=== PATIENT | female | born 1945 | race Hispanic/Latino ===

== ENCOUNTER → 2023-07-31 | Outpatient (CLI) | payer OTHER ==
[~2023-07-31] MED LIST: APIX5TAB PO; ASPI-1197 PO; DILT180C77 PO; GABA-529 PO; GLIP5TAB15 PO; LISI2.5T13 PO; METF-444 PO; METO100T14 PO; MIDO5TAB4 PO; OMEP40CA21 PO; POTA99TA17 PO; SIMV-46 PO
[2023-07-31 16:33] LABS: CREATININE 0.8 mg/dL (0.5-1.5); POTASSIUM 3.7 mmol/L (3.5-5.1)
== END | disposition home or self-care (01) ==
LOC: LAB 14:07
PROVIDERS: ATTEND Internal Medicine Cardiovascular Disease
DX: I48.0 Paroxysmal atrial fibrillation (principal)
CPT/HCPCS: 36415; 80048; 83880

== ENCOUNTER 2024-04-09 05:46 | Observation (INO) | payer OTHER ==
[2024-04-07 11:15] VITALS: BP 151/77; PULSE 53; RESP 18; TEMP 98.1
[2024-04-07 11:15] LABS: CREATININE 0.9 mg/dL (0.5-1.0); POTASSIUM 4.2 mmol/L (3.5-5.1)
[2024-04-07 11:18] LABS: BASOPHILS # (AUTO) 0.05 K/uL (0.00-0.20); BASOPHILS % (AUTO) 0.5 % (0.0-5.0); EOSINOPHILS # (AUTO) 0.24 K/uL (0.00-0.70); EOSINOPHILS % (AUTO) 2.5 % (0.0-8.0); IMMATURE GRANULOCYTE ABSOLUTE 0.03 K/uL (0-1); LYMPHOCYTES # (AUTO) 2.4 K/uL (1.0-4.8); LYMPHOCYTES % (AUTO) 25.4 % (21.0-51.0); MEAN CORPUSCULAR HEMOGLOBIN 29.4 pg (27.0-33.0); MEAN CORPUSCULAR HGB CONC 31.2 g/dL (32.0-36.0); MEAN CORPUSCULAR VOLUME 94.3 fL (79-99); MONOCYTES # (AUTO) 0.5 K/uL (0.1-1.0); MONOCYTES % (AUTO) 5.7 % (3.0-13.0); NEUTROPHILS # (AUTO) 6.2 K/uL (1.8-7.7); NEUTROPHILS % (AUTO) 65.6 % (40.0-77.0); PLATELET COUNT (AUTO) 223 K/uL (130-400); RED BLOOD CELL COUNT(AUTO) 4.35 MIL/uL (4.00-5.50); RED CELL DISTRIBUTION WIDTH 13.2 % (11.0-15.5); WHITE BLOOD COUNT (AUTO) 9.5 K/uL (4.8-10.8)
[2024-04-07 11:23] LABS: INR 1.01 (0.85-1.15); PROTHROMBIN TIME 10.9 SEC (9.6-11.6)
[2024-04-07 11:24] LABS: PARTIAL THROMBOPLASTIN TIME 27.5 SEC (26.3-35.5)
[2024-04-09] VITALS (17 sets, daily range): BP systolic 103–134; BP diastolic 53–69; PULSE 57–74; RESP 13–20; TEMP 97.4–98.6; O2SAT 97–98
[~2024-04-09] VITALS: Ht 170.2 cm; Wt 89.3 kg
[~2024-04-09 05:46] MED LIST changes: -ASPI-1197 PO; +DAPA5TAB PO; -GLIP5TAB15 PO; +MAGN400C PO; -MIDO5TAB4 PO; +MULT-1193 PO
[2024-04-09] MEDS ORDERED: AMIO200T68 PO (06:40)
[2024-04-09] MEDS ORDERED: SUCCINYLCHOLINE CHLORIDE 20 MG/ML 10 ML VIAL ONE (07:06)
[2024-04-09] MEDS ORDERED: rocuRONium bROMide 10MG/1ML 5ML VL ONE (07:06)
[2024-04-09] MEDS ORDERED: HEParin-NS 1,000 UNIT/500 ML 1,000 ML IV ONE (07:15)
[2024-04-09] MEDS ORDERED: LIDOCAINE HCL 400MG/20ML VIAL ONE (07:15)
[2024-04-09] MEDS ORDERED: HEParin 10,000 UNIT/10ML (1,000 UNIT/ML) VIAL ONE ×3 (07:15→11:33)
[2024-04-09] MEDS ORDERED: HEParin-NS 1,000 UNIT/500 ML 500 ML IV ONE (07:50)
[2024-04-09] MEDS ORDERED: PROTAMINE SULFATE 10 MG/ML 5 ML VIAL ONE (13:52)
[2024-04-09] MEDS ORDERED: acetaMINOPHEN WITH coDEINE 1 TAB TAB PO PRN (17:00)
[2024-04-09] MEDS: SUCRALFATE 1 GM/10 ML PO SCH (18:46)
[2024-04-09] MEDS: metFORmin HCL 500 MG TABLET PO SCH (21:00)
[2024-04-09] MEDS: GABApentin 100 MG CAPSULE PO SCH (21:05)
[2024-04-09] MEDS: metoPROLOL tartRATE 50 MG TAB PO SCH (21:05)
[2024-04-09] MEDS: APIXaban 5 MG TABLET PO SCH (21:05)
[2024-04-10 03:21] VITALS: BP 107/56; PULSE 60; RESP 16; TEMP 98.9
[2024-04-10] MEDS: proPOFol 10 MG/ML 20ML VIAL IV ONE (06:59)
[2024-04-10] MEDS: PHENYLEPHRINE HCL 10 MG/ML 1ML VIAL IV ONE (06:59)
[2024-04-10] MEDS: FENTanyl CITRate PF 50 MCG/1 ML 2ML VIAL ONE (06:59)
[2024-04-10] MEDS: ONDANSETRON 4MG INJ ONE (06:59)
[2024-04-10] MEDS: 0.9%NACL 1000ML 1,000 ML IV ONE (07:00)
[2024-04-10] MEDS: LIDOCAINE PF 100MG/5ML (2%) SYRINGE 5ML ONE (07:00)
[2024-04-10] MEDS: ePHEDrine SULFate 50 MG/ML AMPULE ONE (07:00)
[2024-04-10] MEDS: dexaMETHasone SOD PHOSPHATE 4 MG/ML 1ML VIAL ONE (07:00)
[2024-04-10 07:34] VITALS: BP 119/50; PULSE 61; RESP 18; TEMP 98.5
[2024-04-10 08:00] VITALS: O2SAT 97
[2024-04-10] MEDS ORDERED: Dapagliflozin Propanediol (Farxiga) 5 MG PO SCH (09:00)
[2024-04-10] MEDS ORDERED: Potassium Gluconate 99 MG PO SCH (09:00)
[2024-04-10] MEDS: AMIOdarone 200 MG TABLET PO SCH (09:45)
[2024-04-10] MEDS: LISINOPRIL 2.5 MG TABLET PO SCH (09:46)
[2024-04-10] MEDS: MAGNESIUM OXIDE 400 MG TABLET PO SCH (09:46)
[2024-04-10] MEDS: dilTIAZem 180MG SR CAP PO SCH (09:47)
[2024-04-10] MEDS: PANTOPRAZOLE 40 MG TAB DR PO SCH (09:47)
[2024-04-10] MEDS: simVASTatin 20 MG TABLET PO SCH (09:48)
[2024-04-10] MEDS: acetaMINOPHEN WITH coDEINE 1 TAB TAB PO PRN (09:54)
[2024-04-10] MEDS ORDERED: SUCR1TAB2 PO (09:59)
== END 2024-04-10 11:50 | disposition home or self-care (01) ==
LOC: DAH 05:46 → DAHIP 05:47 → DAH 05:47 → 2AH 15:50
PROVIDERS: ADMIT Internal Medicine Cardiovascular Disease; ATTEND Internal Medicine Cardiovascular Disease
DX: I48.0 Paroxysmal atrial fibrillation (principal); I49.3 Ventricular premature depolarization; I47.29 Other ventricular tachycardia; E11.9 Type 2 diabetes mellitus without complications; I10 Essential (primary) hypertension; E78.5 Hyperlipidemia, unspecified; Z79.84 Long term (current) use of oral hypoglycemic drugs; Z79.899 Other long term (current) drug therapy; Z90.710 Acquired absence of both cervix and uterus; Z88.0 Allergy status to penicillin
CPT/HCPCS: 80048; 85025; 85610; 85730; 36415 ×2; 93005; 93655; 93656; 93657 ×4; 85347 ×15; 82948 ×4; A4344; C1894 ×4; C1732 ×3; A4649 ×2; C1766; G0378 ×20; J3010; J3490 ×3; J0330; J7030; J2001; J2720; J1644 ×5; J2704; J2405; J1100; J2371; A4215; A4223 ×3; A4222; A4221; A4663; A4216

== ENCOUNTER → 2024-05-20 | Outpatient (CLI) | payer OTHER ==
[~2024-05-20] MED LIST changes: +AMIO200T68 PO; +SUCR1TAB2 PO
[2024-05-20 16:25] LABS: BASOPHILS # (AUTO) 0.06 K/uL (0.00-0.20); BASOPHILS % (AUTO) 0.5 % (0.0-5.0); EOSINOPHILS # (AUTO) 0.74 K/uL (0.00-0.70); EOSINOPHILS % (AUTO) 6.7 % (0.0-8.0); HEMATOCRIT 34.9 % (36-48); IMMATURE GRANULOCYTE ABSOLUTE 0.04 K/uL (0-1); LYMPHOCYTES # (AUTO) 2.8 K/uL (1.0-4.8); LYMPHOCYTES % (AUTO) 25.3 % (21.0-51.0); MEAN CORPUSCULAR HEMOGLOBIN 28.6 pg (27.0-33.0); MEAN CORPUSCULAR HGB CONC 30.7 g/dL (32.0-36.0); MEAN CORPUSCULAR VOLUME 93.3 fL (79-99); MONOCYTES # (AUTO) 0.7 K/uL (0.1-1.0); MONOCYTES % (AUTO) 6.7 % (3.0-13.0); NEUTROPHILS # (AUTO) 6.7 K/uL (1.8-7.7); NEUTROPHILS % (AUTO) 60.4 % (40.0-77.0); PLATELET COUNT (AUTO) 241 K/uL (130-400); RED BLOOD CELL COUNT(AUTO) 3.74 MIL/uL (4.00-5.50); RED CELL DISTRIBUTION WIDTH 14.2 % (11.0-15.5); WHITE BLOOD COUNT (AUTO) 11.1 K/uL (4.8-10.8)
[2024-05-20 17:03] LABS: CREATININE 0.9 mg/dL (0.5-1.0); POTASSIUM 4.3 mmol/L (3.5-5.1)
== END | disposition home or self-care (01) ==
LOC: LAB 14:36
PROVIDERS: ATTEND Internal Medicine Cardiovascular Disease
DX: J84.9 Interstitial pulmonary disease, unspecified (principal); I48.19 Other persistent atrial fibrillation; M47.815 Spondylosis without myelopathy or radiculopathy, thoracolumbar region
CPT/HCPCS: 36415; 71046; 80048; 83880; 85025